=== PATIENT | female | born 1985 | race Caucasian/White ===

== ENCOUNTER 2016-05-22 17:20 | Emergency (ER) | payer OTHER ==
[~2016-05-22 17:20] MED LIST: FLAGYL500 MG PO; PRENATAL COMPLETE PO
--- NOTE | 2016-05-22 19:13 | ED CLINICAL REPORT ---
Clinical Report - Physicians/Mid Levels [facility] [address] [place] [address] 05/22/2016 17:21 Patient: KADEN SCHAEFER Time Seen: 1735. Arrived- By private vehicle. Historian- patient. HISTORY OF PRESENT ILLNESS Chief Complaint: ABDOMINAL PAIN. Is still present. It is described as "pain" and cramping. Quality not described as sharp or stabbing and it is described as located in the pelvic area and in the left pelvis. No nausea, loss of appetite or vomiting. (Patient presents with abdominal pain over the last 3 days, left-sided in nature, no urinary symptoms urgency or frequency, no diarrhea nausea or vomiting. Last Metro. General rate 15, patient has not taken at home tests over the last 4 weeks, reports possible . Patient denies any vaginal bleeding or spotting, or discharge. Denies any fevers.). REVIEW OF SYSTEMS No difficulty with urination, pain with urination, headache or blurred vision. All systems otherwise negative, except as recorded above. PAST HISTORY Problems: STD - Sexually Transmitted Disease. Headache. UTI - Urinary Tract Infection. Gastroenteritis. Pedal Edema. Abscess. Ovarian Cyst. Leukocytosis. Vaginal Bleeding. Viral Disease. Skin Rash. Dehydration. Immunizations. LNMP - Last Normal Menstrual Period. Abdominal Pain. Cellulitis. Acute Pain. . Additional Surgeries: Cholecystectomy. Medications: None. Allergies: No Known Drug Allergy. SOCIAL HISTORY Never smoker. No alcohol use or drug use. ADDITIONAL NOTES The nursing notes have been reviewed. PHYSICAL EXAM Vital Signs: 05/22/2016 17:33 BP: 107/64. HR: 80. RR: 16. O2 saturation: 94%. Temp: 99.7 F. Pain level now: 7/10. ENT: Ears normal. Nose normal. Neck: Normal inspection. No lymphadenopathy. CVS: Normal heart rate and rhythm. Heart sounds normal. Respiratory: No respiratory distress. Breath sounds normal. Abdomen: Soft and nontender. Tenderness. Bowel sounds normal. Back: Normal inspection. No CVA tenderness. : Normal external exam. No vaginal bleeding. Bimanual exam normal. No tenderness present on bimanual exam. Skin: Skin warm. Normal skin color. Neuro: Oriented X 3. No motor deficit. LABS, X-RAYS, AND EKG Abdominal Sonogram: (IMPRESSION: 1. Early intrauterine gestation at approximate 6.7 weeks menstrual age (plus/minus 1.5 weeks). 2. pole and viability are not confirmed at this early gestational age. 3. Left ovary is enlarged 95.4 cm) secondary to two left ovarian cysts (4.8 cm, 2.3 cm). 4. Findings discussed with JAMESON Leo. Electronically Final signed by:Navid Moy MD 05/22/2016 8:04:35 PM). Laboratory Tests: UA-Culture if indicated: (KALPANA: 05/22/2016 17:45) ( [facility] 05/22/2016 18:20) Final results Test Result Flag Units (Reference) URINE COLOR YELLOW URINE APPEARANCE CLEAR URINE GLUCOSE NEGATIVE (NEGATIVE) URINE BILIRUBIN NEGATIVE (NEGATIVE) URINE KETONE NEGATIVE (NEGATIVE) URINE SPECIFIC GRAVITY 1.010 (1.010-1.030) URINE PH 5.5 (5.0-8.0) URINE PROTEIN NEGATIVE (NEGATIVE) URINE UROBILINOGEN 0.2 EU/dL (0.2-1.0) URINE NITRITE NEGATIVE (NEGATIVE) URINE BLOOD NEGATIVE (NEGATIVE) URINE LEUK ESTERASE NEGATIVE (NEGATIVE) URINE RBC NONE SEEN rbc/hpf (0-1) URINE WBC 0-1 wbc/hpf (0-1) URINE EPITHELIAL CELLS 3-5 EPI/hpf (0-5) URINE BACTERIA TRACE (<1+) (NONE SEEN) URINE COMMENT CULT NOT INDICATED URINE CULTURES ARE SET-UP BASED ON THE FOLLOWING CRITERIA:POSITIVE NITRITEPOSITIVE LEUKOCYTE ESTERASEGREATER THAN 10 WHITE BLOOD CELLSMODERATE (2+) OR GREATER BACTERIA Urine: (KALPANA: 05/22/2016 17:45) ( [facility] 05/22/2016 18:00) Final results Test Result Flag Units (Reference) URINE POSITIVE CBC w Diff: (KALPANA: 05/22/2016 18:10) ( [facility] 05/22/2016 18:20) Final results Test Result Flag Units (Reference) WHITE BLOOD COUNT 15.3 H K/uL (4.5-11.5) RED BLOOD COUNT 4.32 M/uL (4.00-5.20) HEMOGLOBIN 11.7 L gm/dL (12.0-16.0) HEMATOCRIT 35.5 L % (36.0-46.0) MEAN CELL VOLUME 82 fL (80-100) MEAN CORPUSCULAR HGB 27 pg (26-34) MEAN CORPUSCULAR HGB CONC 33 g/dL (31-37) RED CELL DISTRIBUTION WIDTH 14.3 % (11.6-14.8) PLATELET COUNT 305 K/uL (150-400) NEUTROPHIL % 79.2 H % (50-75) LYMPH % 16.1 L % (25-40) MONO % 2.7 L % (3-14) EOSINOPHIL % 1.1 % (0-4) BASOPHIL % 0.9 % (0-2) CMP: (KALPANA: 05/22/2016 18:10) ( [facility] 05/22/2016 19:07) Final results Test Result Flag Units (Reference) GLUCOSE 114 H mg/dL (70-110) BUN 8 mg/dL (7-18) CREATININE 0.9 mg/dL (0.6-1.3) Estimated GFR >60 mL/min Estimated GFR- >60 mL/min Note: Persistent reduction over 3 months in eGFR<60 mL/min/1.73 m2 defines CKD. Patients with eGFR values>=60 mL/min/1.73 m2 may also have CKD if evidence ofpersistent proteinuria. Additional information may be foundat www.kidney.org. SODIUM 138 mmol/L (136-145) POTASSIUM 3.6 mmol/L (3.5-5.1) CHLORIDE 103 mmol/L (98-107) CARBON DIOXIDE 24 mmol/L (21-32) CALCIUM 8.8 mg/dL (8.5-10.1) TOTAL PROTEIN 8.6 H g/dL (6.4-8.2) ALBUMIN 3.6 g/dL (3.3-5.0) BILIRUBIN, TOTAL 0.7 mg/dL (0.0-1.0) ALKALINE PHOSPHATASE 75 U/L (46-116) AST (SGOT) 26 U/L (15-37) ALT (SGPT) 36 U/L (12-78) BETA HCG, QUANTITATIVE 60090 mIU/mL REFERENCE RANGE:Adult Males: <2 mIU/mLNon- Females: <6 mIU/mL Females:Approximate Approximate hCGGestational Age Range (mIU/mL) 0-1 week 0-501-2 weeks 40-3002-3 weeks 100-86783-5 weeks 500-06887-0 months 5,000-200,0002-3 months 10,000-100,0002nd trimester 3,000-50,0003rd trimester 1,000-50,000 Wet Prep: (KALPANA: 05/22/2016 18:36) ( [facility] 05/22/2016 19:09) Final results SPECIMEN DESCRIPTION: C Test Result Flag Units (Reference) WET MOUNT CLUE CELLS:: NONE EPITHELIAL CELLS: MODERATE -- SOURCE?: CERVIX WHITE BLOOD CELLS: MANY TRICHOMONAS:: NONE -- YEAST:: NONE . PROGRESS AND PROCEDURES Course of Care: chaperoned pelvic exam, patient with no tenderness, no cervical motion tenderness, no vaginal bleeding, cervix closed. No signs of torsion or pain out of proportion to exam. Early to f/u with ob. Non surgical abd, no guarding or peritoneal signs. 05/22/2016 19:30 BP: 109/58. HR: 88. RR: 16. O2 saturation: 99%. Temp: 99.3 F. Pain level now: 2/10. Patient is stable. Physical exam findings are improved. Patient/family counseled. Disposition: Discharged. CLINICAL IMPRESSION First trimester ; positive test in emergency department. Multiple simple left ovarian cysts. INSTRUCTIONS Drink plenty of fluids. (follow up with EXCELLENCE CONSULTANT in 2-3 weeks, if sudden worsening of pain return to ER). Prescription Medications: vitamins: Take 1 orally every day. Dispense thirty (30). No refill. OTC Medications: Take acetaminophen (Tylenol, Datril, etc.) according to label instructions. Available over the counter. Follow-up with: Gamal Hutton MD, Obstetrics/Gynecology, , [facility], [address] [place] [address] Follow up. Call for the next available appointment. (Electronically signed by Diana Ball P.A.-C 05/22/2016 21:18)
--- NOTE | 2016-05-22 19:13 | ED ORDER SUMMARY ---
..... Patient: KADEN SCHAEFER OrderSheet [facility] VisitID: [id number] [place] [address] 30y, F Registration Date/Time: 05/22/2016 ORDER SHEET Weight: 108.8 kg (stated) Allergies: No Known Drug Allergy GENERAL ORDERS: UA-Culture if indicated Urgent (17:42 05/22/2016 JRomanelli R.N. verbal order read back to EKoroleva P.A.-C) (Ack 17:42 Ewelina) (18:12 LNations ER Tech1) Urine Urgent (17:42 05/22/2016 JRomanelli R.N. verbal order read back to EKoroleva P.A.-C) (Ack 17:42 Ewelina) (18:12 LNations ER Tech1) CBC w Diff Urgent (17:52 05/22/2016 EKoroleva P.A.-C) (Ack 18:00 LNations ER Tech1) (18:12 LNations ER Tech1) CMP Urgent (17:52 05/22/2016 EKoroleva P.A.-C) (Ack 18:00 LNations ER Tech1) (18:12 LNations ER Tech1) Serum Quantitative Urgent (17:52 05/22/2016 EKoroleva P.A.-C) (Ack 18:00 LNations ER Tech1) (18:12 LNations ER Tech1) Pelvic Exam Setup (17:52 05/22/2016 EKoroleva P.A.-C) (Ack 18:00 LNations ER Tech1) (18:12 LNations ER Tech1) US OB 1st Trimester w Transvag (03/11/16) Urgent (18:20 05/22/2016 EKoroleva P.A.-C) (Ack 18:25 LNations ER Tech1) (20:29 JRomanelli R.N.) Wet Prep (Cervix) (c) Urgent (18:56 05/22/2016 EKoroleva P.A.-C) (Ack 18:57 LNations ER Tech1) (20:29 JRomanelli R.N.) GC/Chlamydia (Cervix) (c) Urgent (18:56 05/22/2016 Porter Duke) (Ack 18:57 LNations ER Tech1) (20:29 Claude Ramos) MEDICATION ORDERS: IV FLUIDS: ORDER SHEET NOTES: [Electronically signed by Jonh Rivers R.N. (20:35 05/22/2016)] [Electronically signed by Diana Ball P.A.-C (21:18 05/22/2016)] [Electronically locked/signed by Jonh Rivers R.N. (20:35 05/22/2016)]
--- NOTE | 2016-05-22 19:13 | ED NURSING NOTES ---
Clinical Report - Nurses [facility] [address] [place] [address] 05/22/2016 17:21 Patient: KADEN SCHAEFER TRIAGE Triage time 17:30 May 22 2016. Acuity: LEVEL 3. Chief Complaint: LEFT-SIDED FLANK PAIN. Alert. CARYL COMA SCORE: Strang Coma Scale: 15- eyes open spontaneously (4); best verbal response- oriented x 4 (5); best motor response- obeys commands (6). --17:45 Jonh Rivers R.N. 17:33 05/22/16. BP: 107/64. HR: 80. RR: 16. O2 saturation: 94% on room air. Temp: 99.7 F. Pain level now: 7/10. Additional comments: (L) Flank. --17:45 Jonh Rivers R.N. Weight: 108.8 kg stated. Height/Length: 65 inches Per Patient. BMI: 40. --17:37 Jonh Rivers R.N. Medications None. --17:35 Jonh Rivers R.N. Allergies No Known Drug Allergy. --17:35 Jonh Rivers R.N. Medication/allergy information source: the patient. --17:45 Jonh Rivers R.N. History Arrived by private vehicle. Historian: patient. Accompanied by spouse. Primary physician ([facility]). ( (L) Flank Pain for the last 2 days.). Onset. (about 2 days ago). She has had abdominal pain. She has had moderate left-sided flank pain. No abnormal bleeding. Treatment SALES ADVISORY MANAGER: None. PAST MEDICAL HX: Prior sexually transmitted disease history: chlamydia. Immunizations: up-to-date. Last normal menstrual period- about 2 months ago. SOCIAL HX: Never smoker. No alcohol use or drug use. No infectious disease exposure. ABUSE ASSESSMENT: No report of abuse. FALL RISK ASSESSMENT: Fall risk assessment completed. No fall risk identified. NUTRITIONAL RISK ASSESSMENT: The nutritional risk assessment revealed no deficiencies. FUNCTIONAL ASSESSMENT: Functional assessment: no impairments noted. LEARNING NEEDS ASSESSMENT: The learning needs assessment revealed no barriers. SKIN INTEGRITY ASSESSMENT: Skin integrity risk assessment completed. No skin integrity risk identified. --17:45 Jonh Rivers R.N. PROBLEMS: Headache. UTI - Urinary Tract Infection. Gastroenteritis. Pedal Edema. Abscess. Ovarian Cyst. Leukocytosis. Vaginal Bleeding. Viral Disease. Dehydration. Immunizations. LNMP - Last Normal Menstrual Period. Abdominal Pain. Cellulitis. Acute Pain. --17:38 Jonh Rivers R.N. ADDITIONAL SURGERIES: Cholecystectomy. --17:38 Jonh Rivers R.N. Interventions ID band on patient. To treatment room. --17:45 Jonh Rivers R.N. PHYSICAL ASSESSMENT Ambulatory to room. GENERAL / NEURO / PSYCH: Alert. Oriented X 4. Appears in pain. HEENT: Mucous membranes are pink. RESPIRATORY: Respirations not labored. CVS: Normal heart rate and rhythm. GI / : Abdominal tenderness in the left lower quadrant. Bowel sounds within normal limits. No vaginal bleeding. No vaginal discharge. SKIN: Skin is warm and dry. --17:46 Jonh Rivers R.N. NURSING PROGRESS NOTES Patient gowned. Reassurance given. Patient identifiers checked. Call light placed in reach. Side rails up x 1. Bed placed in lowest position. Brakes of bed on. Patient ready for evaluation- chart flagged and ED physician notified. --17:46 Jonh Rivers R.N. Patient ID band checked for patient name, birthdate and medical record number: patient confirmed. Instructions provided to collect clean catch urine and patient verbalized understanding. Clean catch urine collected with return of yellow-colored clear urine; odor is normal; sample sent to lab for urinalysis, culture and HCG. Specimen labeled in the presence of the patient. --17:47 Jonh Rivers R.N. 18:56 05/22/16. PELVIC EXAM: Pelvic exam performed by PA. Assisted by two nurses. Preparation: pelvic tray; patient placed in lithotomy position. Procedure: speculum and bimanual exam. Specimens collected and sent to lab: GC, chlamydia and wet prep. Status post-procedure: she was stable. Total time of assist / procedure: 15 minutes. --18:56 Tg Michelle R.N. 19:15 05/22/16. BP: 109/57. HR: 75. RR: 16. O2 saturation: 99%. Pain level now: 06/04. Additional comments: (L) Flank Pain. --19:26 Jonh Rivers R.N. 18:30 late entry -. ( Ultrasound in room doing procedure). --20:34 Jonh Rivers R.N. DISPOSITION / DISCHARGE 19:30 05/22/16. BP: 109/58. HR: 88. RR: 16. O2 saturation: 99% on room air. Temp: 99.3 F. Pain level now: 04/06. Additional comments: (L) Flank Pain. --20:24 Jonh Rivers R.N. <<STRICKEN ENTRY-- Departure time: 1929. --20:24 Jonh Rivers R.N. --END STRIKE>> Correction --20:28 Jonh Rivers R.N. 19:35. Condition at departure: improved. No learning barriers present. Discharge instructions provided and reviewed with the patient. Reviewed medication(s) (prescription given to pt). Reviewed referral to an sponge buffer for followup. Patient and spouse verbalized understanding. Written instructions provided in Bengali. The patient was discharged by the physician assistant hairstylist. She was discharged home and accompanied by spouse. She left the Emergency Department ambulatory and via private vehicle. Spouse driving. --20:28 Jonh Rivers R.N. Departure time: 1934. --20:28 Jonh Rivers R.N. Locked/Released at 05/22/2016 20:35 by Jonh Rivers R.N.
--- NOTE | 2016-05-22 19:13 | ED ORDER SUMMARY ---
..... Patient: KADEN SCHAEFER OrderSheet [facility] VisitID: [id number] [place] [address] 30y, F Registration Date/Time: 05/22/2016 ORDER SHEET Weight: 108.8 kg (stated) Allergies: No Known Drug Allergy GENERAL ORDERS: UA-Culture if indicated Urgent (17:42 05/22/2016 JRomanelli R.N. verbal order read back to EKoroleva P.A.-C) (Ack 17:42 Ewelina) (18:12 LNations ER Tech1) Urine Urgent (17:42 05/22/2016 JRomanelli R.N. verbal order read back to EKoroleva P.A.-C) (Ack 17:42 Ewelina) (18:12 LNations ER Tech1) CBC w Diff Urgent (17:52 05/22/2016 EKoroleva P.A.-C) (Ack 18:00 LNations ER Tech1) (18:12 LNations ER Tech1) CMP Urgent (17:52 05/22/2016 EKoroleva P.A.-C) (Ack 18:00 LNations ER Tech1) (18:12 LNations ER Tech1) Serum Quantitative Urgent (17:52 05/22/2016 EKoroleva P.A.-C) (Ack 18:00 LNations ER Tech1) (18:12 LNations ER Tech1) Pelvic Exam Setup (17:52 05/22/2016 EKoroleva P.A.-C) (Ack 18:00 LNations ER Tech1) (18:12 LNations ER Tech1) US OB 1st Trimester w Transvag (03/11/16) Urgent (18:20 05/22/2016 EKoroleva P.A.-C) (Ack 18:25 LNations ER Tech1) (20:29 JRomanelli R.N.) Wet Prep (Cervix) (c) Urgent (18:56 05/22/2016 EKoroleva P.A.-C) (Ack 18:57 LNations ER Tech1) (20:29 JRomanelli R.N.) GC/Chlamydia (Cervix) (c) Urgent (18:56 05/22/2016 Porter Duke) (Ack 18:57 LNations ER Tech1) (20:29 Claude Ramos) MEDICATION ORDERS: IV FLUIDS: ORDER SHEET NOTES: [Electronically signed by Jonh Rivers R.N. (20:35 05/22/2016)] [Electronically signed by Diana Ball P.A.-C (21:18 05/22/2016)] [Electronically locked/signed by Jonh Rivers R.N. (20:35 05/22/2016)]
--- NOTE | 2016-05-22 19:13 | ED CLINICAL REPORT ---
Clinical Report - Physicians/Mid Levels [facility] [address] [place] [address] 05/22/2016 17:21 Patient: KADEN SCHAEFER Time Seen: 1735. Arrived- By private vehicle. Historian- patient. HISTORY OF PRESENT ILLNESS Chief Complaint: ABDOMINAL PAIN. Is still present. It is described as "pain" and cramping. Quality not described as sharp or stabbing and it is described as located in the pelvic area and in the left pelvis. No nausea, loss of appetite or vomiting. (Patient presents with abdominal pain over the last 3 days, left-sided in nature, no urinary symptoms urgency or frequency, no diarrhea nausea or vomiting. Last Metro. General rate 15, patient has not taken at home tests over the last 4 weeks, reports possible . Patient denies any vaginal bleeding or spotting, or discharge. Denies any fevers.). REVIEW OF SYSTEMS No difficulty with urination, pain with urination, headache or blurred vision. All systems otherwise negative, except as recorded above. PAST HISTORY Problems: STD - Sexually Transmitted Disease. Headache. UTI - Urinary Tract Infection. Gastroenteritis. Pedal Edema. Abscess. Ovarian Cyst. Leukocytosis. Vaginal Bleeding. Viral Disease. Skin Rash. Dehydration. Immunizations. LNMP - Last Normal Menstrual Period. Abdominal Pain. Cellulitis. Acute Pain. . Additional Surgeries: Cholecystectomy. Medications: None. Allergies: No Known Drug Allergy. SOCIAL HISTORY Never smoker. No alcohol use or drug use. ADDITIONAL NOTES The nursing notes have been reviewed. PHYSICAL EXAM Vital Signs: 05/22/2016 17:33 BP: 107/64. HR: 80. RR: 16. O2 saturation: 94%. Temp: 99.7 F. Pain level now: 7/10. ENT: Ears normal. Nose normal. Neck: Normal inspection. No lymphadenopathy. CVS: Normal heart rate and rhythm. Heart sounds normal. Respiratory: No respiratory distress. Breath sounds normal. Abdomen: Soft and nontender. Tenderness. Bowel sounds normal. Back: Normal inspection. No CVA tenderness. : Normal external exam. No vaginal bleeding. Bimanual exam normal. No tenderness present on bimanual exam. Skin: Skin warm. Normal skin color. Neuro: Oriented X 3. No motor deficit. LABS, X-RAYS, AND EKG Abdominal Sonogram: (IMPRESSION: 1. Early intrauterine gestation at approximate 6.7 weeks menstrual age (plus/minus 1.5 weeks). 2. pole and viability are not confirmed at this early gestational age. 3. Left ovary is enlarged 95.4 cm) secondary to two left ovarian cysts (4.8 cm, 2.3 cm). 4. Findings discussed with JAMESON Leo. Electronically Final signed by:Navid Moy MD 05/22/2016 8:04:35 PM). Laboratory Tests: UA-Culture if indicated: (KALPANA: 05/22/2016 17:45) ( [facility] 05/22/2016 18:20) Final results Test Result Flag Units (Reference) URINE COLOR YELLOW URINE APPEARANCE CLEAR URINE GLUCOSE NEGATIVE (NEGATIVE) URINE BILIRUBIN NEGATIVE (NEGATIVE) URINE KETONE NEGATIVE (NEGATIVE) URINE SPECIFIC GRAVITY 1.010 (1.010-1.030) URINE PH 5.5 (5.0-8.0) URINE PROTEIN NEGATIVE (NEGATIVE) URINE UROBILINOGEN 0.2 EU/dL (0.2-1.0) URINE NITRITE NEGATIVE (NEGATIVE) URINE BLOOD NEGATIVE (NEGATIVE) URINE LEUK ESTERASE NEGATIVE (NEGATIVE) URINE RBC NONE SEEN rbc/hpf (0-1) URINE WBC 0-1 wbc/hpf (0-1) URINE EPITHELIAL CELLS 3-5 EPI/hpf (0-5) URINE BACTERIA TRACE (<1+) (NONE SEEN) URINE COMMENT CULT NOT INDICATED URINE CULTURES ARE SET-UP BASED ON THE FOLLOWING CRITERIA:POSITIVE NITRITEPOSITIVE LEUKOCYTE ESTERASEGREATER THAN 10 WHITE BLOOD CELLSMODERATE (2+) OR GREATER BACTERIA Urine: (KALPANA: 05/22/2016 17:45) ( [facility] 05/22/2016 18:00) Final results Test Result Flag Units (Reference) URINE POSITIVE CBC w Diff: (KALPANA: 05/22/2016 18:10) ( [facility] 05/22/2016 18:20) Final results Test Result Flag Units (Reference) WHITE BLOOD COUNT 15.3 H K/uL (4.5-11.5) RED BLOOD COUNT 4.32 M/uL (4.00-5.20) HEMOGLOBIN 11.7 L gm/dL (12.0-16.0) HEMATOCRIT 35.5 L % (36.0-46.0) MEAN CELL VOLUME 82 fL (80-100) MEAN CORPUSCULAR HGB 27 pg (26-34) MEAN CORPUSCULAR HGB CONC 33 g/dL (31-37) RED CELL DISTRIBUTION WIDTH 14.3 % (11.6-14.8) PLATELET COUNT 305 K/uL (150-400) NEUTROPHIL % 79.2 H % (50-75) LYMPH % 16.1 L % (25-40) MONO % 2.7 L % (3-14) EOSINOPHIL % 1.1 % (0-4) BASOPHIL % 0.9 % (0-2) CMP: (KALPANA: 05/22/2016 18:10) ( MsgRcvd 05/22/2016 19:07) Final results Test Result Flag Units (Reference) GLUCOSE 114 H mg/dL (70-110) BUN 8 mg/dL (7-18) CREATININE 0.9 mg/dL (0.6-1.3) Estimated GFR >60 mL/min Estimated GFR- >60 mL/min Note: Persistent reduction over 3 months in eGFR<60 mL/min/1.73 m2 defines CKD. Patients with eGFR values>=60 mL/min/1.73 m2 may also have CKD if evidence ofpersistent proteinuria. Additional information may be foundat www.kidney.org. SODIUM 138 mmol/L (136-145) POTASSIUM 3.6 mmol/L (3.5-5.1) CHLORIDE 103 mmol/L (98-107) CARBON DIOXIDE 24 mmol/L (21-32) CALCIUM 8.8 mg/dL (8.5-10.1) TOTAL PROTEIN 8.6 H g/dL (6.4-8.2) ALBUMIN 3.6 g/dL (3.3-5.0) BILIRUBIN, TOTAL 0.7 mg/dL (0.0-1.0) ALKALINE PHOSPHATASE 75 U/L (46-116) AST (SGOT) 26 U/L (15-37) ALT (SGPT) 36 U/L (12-78) BETA HCG, QUANTITATIVE 81434 mIU/mL REFERENCE RANGE:Adult Males: <2 mIU/mLNon- Females: <6 mIU/mL Females:Approximate Approximate hCGGestational Age Range (mIU/mL) 0-1 week 0-501-2 weeks 40-3002-3 weeks 100-36582-5 weeks 500-96680-2 months 5,000-200,0002-3 months 10,000-100,0002nd trimester 3,000-50,0003rd trimester 1,000-50,000 Wet Prep: (KALPANA: 05/22/2016 18:36) ( [facility] 05/22/2016 19:09) Final results SPECIMEN DESCRIPTION: C Test Result Flag Units (Reference) WET MOUNT CLUE CELLS:: NONE EPITHELIAL CELLS: MODERATE -- SOURCE?: CERVIX WHITE BLOOD CELLS: MANY TRICHOMONAS:: NONE -- YEAST:: NONE . PROGRESS AND PROCEDURES Course of Care: chaperoned pelvic exam, patient with no tenderness, no cervical motion tenderness, no vaginal bleeding, cervix closed. No signs of torsion or pain out of proportion to exam. Early to f/u with ob. Non surgical abd, no guarding or peritoneal signs. 05/22/2016 19:30 BP: 109/58. HR: 88. RR: 16. O2 saturation: 99%. Temp: 99.3 F. Pain level now: 2/10. Patient is stable. Physical exam findings are improved. Patient/family counseled. Disposition: Discharged. CLINICAL IMPRESSION First trimester ; positive test in emergency department. Multiple simple left ovarian cysts. INSTRUCTIONS Drink plenty of fluids. (follow up with FOOD SCIENCE PROFESSOR in 2-3 weeks, if sudden worsening of pain return to ER). Prescription Medications: vitamins: Take 1 orally every day. Dispense thirty (30). No refill. OTC Medications: Take acetaminophen (Tylenol, Datril, etc.) according to label instructions. Available over the counter. Follow-up with: Gamal Hutton MD, Obstetrics/Gynecology, , [facility], [address] [place] [address] Follow up. Call for the next available appointment. (Electronically signed by Diana Ball P.A.-C 05/22/2016 21:18)
--- NOTE | 2016-05-22 19:13 | ED NURSING NOTES ---
Clinical Report - [facility] [address] [place] [address] 05/22/2016 17:21 Patient: KADEN SCHAEFER TRIAGE Triage time 17:30 May 22 2016. Acuity: LEVEL 3. Chief Complaint: LEFT-SIDED FLANK PAIN. Alert. CARYL COMA SCORE: [place] Coma Scale: 15- eyes open spontaneously (4); best verbal response- oriented x 4 (5); best motor response- obeys commands (6). --17:45 Jonh Rivers R.N. 17:33 05/22/16. BP: 107/64. HR: 80. RR: 16. O2 saturation: 94% on room air. Temp: 99.7 F. Pain level now: 7/10. Additional comments: (L) Flank. --17:45 Jonh Rivers R.N. Weight: 108.8 kg stated. Height/Length: 65 inches Per Patient. BMI: 40. --17:37 Jonh Rivers R.N. Medications None. --17:35 Jonh Rivers R.N. Allergies No Known Drug Allergy. --17:35 Jonh Rivers R.N. Medication/allergy information source: the patient. --17:45 Jonh Rivers R.N. History Arrived by private vehicle. Historian: patient. Accompanied by spouse. Primary physician ([facility]). ( (L) Flank Pain for the last 2 days.). Onset. (about 2 days ago). She has had abdominal pain. She has had moderate left-sided flank pain. No abnormal bleeding. Treatment TEAM TRUCK DRIVER: None. PAST MEDICAL HX: Prior sexually transmitted disease history: chlamydia. Immunizations: up-to-date. Last normal menstrual period- about 2 months ago. SOCIAL HX: Never smoker. No alcohol use or drug use. No infectious disease exposure. ABUSE ASSESSMENT: No report of abuse. FALL RISK ASSESSMENT: Fall risk assessment completed. No fall risk identified. NUTRITIONAL RISK ASSESSMENT: The nutritional risk assessment revealed no deficiencies. FUNCTIONAL ASSESSMENT: Functional assessment: no impairments noted. LEARNING NEEDS ASSESSMENT: The learning needs assessment revealed no barriers. SKIN INTEGRITY ASSESSMENT: Skin integrity risk assessment completed. No skin integrity risk identified. --17:45 John Rivers R.N. PROBLEMS: Headache. UTI - Urinary Tract Infection. Gastroenteritis. Pedal Edema. Abscess. Ovarian Cyst. Leukocytosis. Vaginal Bleeding. Viral Disease. Dehydration. Immunizations. LNMP - Last Normal Menstrual Period. Abdominal Pain. Cellulitis. Acute Pain. --17:38 Jonh Rivers R.N. ADDITIONAL SURGERIES: Cholecystectomy. --17:38 Jonh Rivers R.N. Interventions ID band on patient. To treatment room. --17:45 Jonh Rivers R.N. PHYSICAL ASSESSMENT Ambulatory to room. GENERAL / NEURO / PSYCH: Alert. Oriented X 4. Appears in pain. HEENT: Mucous membranes are pink. RESPIRATORY: Respirations not labored. CVS: Normal heart rate and rhythm. GI / : Abdominal tenderness in the left lower quadrant. Bowel sounds within normal limits. No vaginal bleeding. No vaginal discharge. SKIN: Skin is warm and dry. --17:46 Jonh Rivers R.N. NURSING PROGRESS NOTES Patient gowned. Reassurance given. Patient identifiers checked. Call light placed in reach. Side rails up x 1. Bed placed in lowest position. Brakes of bed on. Patient ready for evaluation- chart flagged and ED physician notified. --17:46 Jonh Rivers R.N. Patient ID band checked for patient name, birthdate and medical record number: patient confirmed. Instructions provided to collect clean catch urine and patient verbalized understanding. Clean catch urine collected with return of yellow-colored clear urine; odor is normal; sample sent to lab for urinalysis, culture and HCG. Specimen labeled in the presence of the patient. --17:47 Jonh Rivers R.N. 18:56 05/22/16. PELVIC EXAM: Pelvic exam performed by PA. Assisted by two nurses. Preparation: pelvic tray; patient placed in lithotomy position. Procedure: speculum and bimanual exam. Specimens collected and sent to lab: GC, chlamydia and wet prep. Status post-procedure: she was stable. Total time of assist / procedure: 15 minutes. --18:56 Tg Michelle R.N. 19:15 05/22/16. BP: 109/57. HR: 75. RR: 16. O2 saturation: 99%. Pain level now: 06/04. Additional comments: (L) Flank Pain. --19:26 Jonh Rivers R.N. 18:30 late entry -. ( Ultrasound in room doing procedure). --20:34 Jonh Rivers R.N. DISPOSITION / DISCHARGE 19:30 05/22/16. BP: 109/58. HR: 88. RR: 16. O2 saturation: 99% on room air. Temp: 99.3 F. Pain level now: 04/06. Additional comments: (L) Flank Pain. --20:24 Jonh Rivers R.N. <<STRICKEN ENTRY-- Departure time: 1929. --20:24 Jonh Rivers R.N. --END STRIKE>> Correction --20:28 Jonh Rivers R.N. 19:35. Condition at departure: improved. No learning barriers present. Discharge instructions provided and reviewed with the patient. Reviewed medication(s) (prescription given to pt). Reviewed referral to an blow down operator for followup. Patient and spouse verbalized understanding. Written instructions provided in [employer]. The patient was discharged by the physician assistant to the director. She was discharged home and accompanied by spouse. She left the Emergency Department ambulatory and via private vehicle. Spouse driving. --20:28 Jonh Rivers R.N. Departure time: 1934. --20:28 Jonh Rivers R.N. Locked/Released at 05/22/2016 20:35 by Jonh Rivers R.N.
--- NOTE | 2016-05-22 20:07 | DIAGNOSTIC IMAGING REPORT ---
PROCEDURE: US OB 1ST TRIMESTER W/TRANSVAG INDICATION: PAIN TECHNIQUE: Escobar scale, color, and spectral Doppler transabdominal and endovaginal sonographic images of the first trimester gravid uterus were obtained. (Executive Advisor D, RT). COMPARISON: None. FINDINGS: TRANSABDOMINAL SCANS: Early intrauterine gestational sac. TRANSVAGINAL SCANS: Early intrauterine gestational sac (1.8 cm, 6.7 weeks). Small yolk sac. pole and cardiac activity not clearly documented at this early age. Left ovary is enlarged (5.4 cm) by two adjacent left ovarian cysts (4.8 cm, 2.3 cm). Right ovary is normal (3.1 cm). No evidence of free fluid. IMPRESSION: 1. Early intrauterine gestation at approximate 6.7 weeks menstrual age (plus/minus 1.5 weeks). 2. pole and viability are not confirmed at this early gestational age. 3. Left ovary is enlarged 95.4 cm) secondary to two left ovarian cysts (4.8 cm, 2.3 cm). 4. Findings discussed with JAMESON Leo.
--- NOTE | 2016-05-22 20:07 | DIAGNOSTIC IMAGING REPORT ---
PROCEDURE: US OB 1ST TRIMESTER W/TRANSVAG INDICATION: PAIN TECHNIQUE: Escobar scale, color, and spectral Doppler transabdominal and endovaginal sonographic images of the first trimester gravid uterus were obtained. (Careers Counsellor D, RT). COMPARISON: None. FINDINGS: TRANSABDOMINAL SCANS: Early intrauterine gestational sac. TRANSVAGINAL SCANS: Early intrauterine gestational sac (1.8 cm, 6.7 weeks). Small yolk sac. pole and cardiac activity not clearly documented at this early age. Left ovary is enlarged (5.4 cm) by two adjacent left ovarian cysts (4.8 cm, 2.3 cm). Right ovary is normal (3.1 cm). No evidence of free fluid. IMPRESSION: 1. Early intrauterine gestation at approximate 6.7 weeks menstrual age (plus/minus 1.5 weeks). 2. pole and viability are not confirmed at this early gestational age. 3. Left ovary is enlarged 95.4 cm) secondary to two left ovarian cysts (4.8 cm, 2.3 cm). 4. Findings discussed with JAMESON Leo.
--- NOTE | 2016-05-22 21:18 | ED MAR SUMMARY ---
..... Medication Administration Record [facility] [address] [place], [place] [id number] Patient: KADEN SCHAEFER Visit ID: [id number] 30y, F Weight: 108.8 kg Height/Length: 65 in BMI: 40 ALLERGIES: No Known Drug Allergy
--- NOTE | 2016-05-22 21:18 | ED MED RECONCILIATION SUMMARY ---
Patient: KADEN SCHAEFER Medication Reconciliation Report [facility] VisitID: [id number] [place] [address] 30y, F Registration Date/Time: 05/22/2016 Weight: 108.8 kg Height/Length: 65 in. BMI: 40.0 ALLERGIES: No Known Drug Allergy The patient's Home Medications are listed below: NONE. The source(s) of the original Home Medication information: patient The following Medications were given to the patient in the Emergency Department: None. The following Medications were prescribed to the patient: Take acetaminophen (Tylenol, Datril, etc.) according to label instructions. Available over the counter. -- Diana Ball, P.A.-C vitamins: Take 1 orally every day. Dispense thirty (30). No refill. -- Diana Ball, P.A.-C
--- NOTE | 2016-05-22 21:18 | ED MAR SUMMARY ---
..... Medication Administration Record [facility] [address], [place] [id number] Patient: KADEN SCHAEFER Visit ID: [id number] 30y, F Weight: 108.8 kg Height/Length: 65 in BMI: 40 ALLERGIES: No Known Drug Allergy
--- NOTE | 2016-05-22 21:18 | ED DISCHARGE INSTRUCTIONS ---
Patient: KADEN SCHAEFER General Instructions [facility] VisitID: [id number] [place] [id number] 30y, F Registration Date/Time: 05/22/2016 First trimester ; positive test in emergency department. Multiple simple left ovarian cysts. INSTRUCTIONS Drink plenty of fluids. (follow up with FLOOR INSPECTOR in 2-3 weeks, if sudden worsening of pain return to ER). Prescription Medications: vitamins: Take 1 orally every day. Dispense thirty (30). No refill. OTC Medications: Take acetaminophen (Tylenol, Datril, etc.) according to label instructions. Available over the counter. Follow-up with: Gamal Hutton MD, Obstetrics/Gynecology, , [facility], [address] [place] [address] Follow up. Call for the next available appointment. ADDITIONAL INFORMATION Ovarian Cyst The ovary is a small organ located on each side of the uterus. During each menstrual cycle a tiny egg sac forms in the ovary. If the egg is released but does not occur, this sac usually dissolves. Sometimes, the sac may fill with fluid. It then enlarges into a painful cyst. Usually the cyst will rupture or shrink on its own. In either case, the pain gradually goes away over the next 1-3 days. If the cyst does not shrink or rupture, it may cause continued pain. Home Care: Rest in bed and avoid heavy exertion until you are feeling better. Heat to the lower abdomen usually helps (heating pad or hot packs -- a small towel soaked in hot water). You may use acetaminophen (Tylenol) or ibuprofen (Motrin, Advil) to control pain, unless another pain medicine was prescribed. [NOTE: If you have chronic liver or kidney disease or ever had a stomach ulcer or GI bleeding, talk with your doctor before using these medicines.] Follow Up: See your doctor within the next 2-3 days if your pain doesnt improve. Otherwise, follow up with your doctor after your next period or as directed by our staff. Get Prompt Medical Attention if any of the following occur: Pain worsens or fails to respond to the above measures Fever of 100.4F (38C) or higher, or as directed by your healthcare provider Heavy vaginal bleeding (soaking one pad an hour for three hours) You feel weak or dizzy Fainting Passage of a pink or nowak tissue with menstrual bleeding Your exam today shows that you are . During , it is normal to develop tender swollen breasts, frequent urination and mild vaginal discharge. During the first three months, nausea is common. Guidelines For A Healthy : To ensure that your baby is born healthy there are certain things that you can do: When you feel tired, you should REST. This is especially true in the later months of . Your body needs more FLUIDS than you may be used to: You should drink 8-10 glasses of juice, milk or water. Eat well-balanced MEALS at regular intervals to supply your body with enough protein. You can expect a total weight gain of about 30 pounds during the . Do not try to diet or lose weight while you are . Because of the extra nutritional needs during , take one VITAMIN daily. Do not take any other MEDICINE during your (prescribed or [id number]) unless your doctor specifically recommends this. Many drugs can have harmful effects on the growing baby. If NAUSEA or VOMITING become a problem, avoid greasy and fried foods. Eat several smaller meals throughout the day rather than three large meals. If you SMOKE, you must stop. The nicotine you breathe in goes right to the baby. Stay away from ALCOHOL, even in moderate amounts. Daily drinking will harm your baby and can cause permanent brain damage. RECREATIONAL DRUGS are harmful, especially cocaine, crack, and heroin. Marijuana should also be avoided. If you were using recreational drugs or prescribed medicine when you found out that you were , talk to your doctor about possible effects on the fetus. Follow Up: Call to arrange for care. This can be provided by your family doctor, an black top raker ( specialist) or a primary care clinic. Get Prompt Medical Attention if any of the following occur: Vaginal bleeding Moderate or severe abdominal or back pain Excessive vomiting, unable to keep any fluids down for six hours Burning with urination Headache, dizziness or rapid weight gain Your exam today shows that you are . During , it is normal to develop tender swollen breasts, frequent urination and mild vaginal discharge. During the first three months, nausea is common. Guidelines For A Healthy : To ensure that your baby is born healthy there are certain things that you can do: When you feel tired, you should REST. This is especially true in the later months of . Your body needs more FLUIDS than you may be used to: You should drink 8-10 glasses of juice, milk or water. Eat well-balanced MEALS at regular intervals to supply your body with enough protein. You can expect a total weight gain of about 30 pounds during the . Do not try to diet or lose weight while you are . Because of the extra nutritional needs during , take one VITAMIN daily. Do not take any other MEDICINE during your (prescribed or [id number]) unless your doctor specifically recommends this. Many drugs can have harmful effects on the growing baby. If NAUSEA or VOMITING become a problem, avoid greasy and fried foods. Eat several smaller meals throughout the day rather than three large meals. If you SMOKE, you must stop. The nicotine you breathe in goes right to the baby. Stay away from ALCOHOL, even in moderate amounts. Daily drinking will harm your baby and can cause permanent brain damage. RECREATIONAL DRUGS are harmful, especially cocaine, crack, and heroin. Marijuana should also be avoided. If you were using recreational drugs or prescribed medicine when you found out that you were , talk to your doctor about possible effects on the fetus. Follow Up: Call to arrange for care. This can be provided by your family doctor, an black top raker ( specialist) or a primary care clinic. Get Prompt Medical Attention if any of the following occur: Vaginal bleeding Moderate or severe abdominal or back pain Excessive vomiting, unable to keep any fluids down for six hours Burning with urination Headache, dizziness or rapid weight gain You have been given the following additional information: Ovarian Cyst , New Dx , New Dx (Electronically signed by Diana Ball P.A.-C 05/22/2016 21:18)
--- NOTE | 2016-05-22 21:18 | ED MED RECONCILIATION SUMMARY ---
Patient: KADEN SCHAEFER Medication Reconciliation Report [facility] VisitID: [id number] [place] [address] 30y, F Registration Date/Time: 05/22/2016 Weight: 108.8 kg Height/Length: 65 in. BMI: 40.0 ALLERGIES: No Known Drug Allergy The patient's Home Medications are listed below: NONE. The source(s) of the original Home Medication information: patient The following Medications were given to the patient in the Emergency Department: None. The following Medications were prescribed to the patient: Take acetaminophen (Tylenol, Datril, etc.) according to label instructions. Available over the counter. -- Diana Ball, P.A.-C vitamins: Take 1 orally every day. Dispense thirty (30). No refill. -- Diana Ball, P.A.-C
--- NOTE | 2016-05-22 21:18 | ED DISCHARGE INSTRUCTIONS ---
Patient: KADEN SCHAEFER General Instructions [facility] VisitID: [id number] [place] [id number] 30y, F Registration Date/Time: 05/22/2016 First trimester ; positive test in emergency department. Multiple simple left ovarian cysts. INSTRUCTIONS Drink plenty of fluids. (follow up with MANAGER PROJECT MANAGEMENT in 2-3 weeks, if sudden worsening of pain return to ER). Prescription Medications: vitamins: Take 1 orally every day. Dispense thirty (30). No refill. OTC Medications: Take acetaminophen (Tylenol, Datril, etc.) according to label instructions. Available over the counter. Follow-up with: Gamal Hutton MD, Obstetrics/Gynecology, , [facility], [address] [place] [address] Follow up. Call for the next available appointment. ADDITIONAL INFORMATION Ovarian Cyst The ovary is a small organ located on each side of the uterus. During each menstrual cycle a tiny egg sac forms in the ovary. If the egg is released but does not occur, this sac usually dissolves. Sometimes, the sac may fill with fluid. It then enlarges into a painful cyst. Usually the cyst will rupture or shrink on its own. In either case, the pain gradually goes away over the next 1-3 days. If the cyst does not shrink or rupture, it may cause continued pain. Home Care: Rest in bed and avoid heavy exertion until you are feeling better. Heat to the lower abdomen usually helps (heating pad or hot packs -- a small towel soaked in hot water). You may use acetaminophen (Tylenol) or ibuprofen (Motrin, Advil) to control pain, unless another pain medicine was prescribed. [NOTE: If you have chronic liver or kidney disease or ever had a stomach ulcer or GI bleeding, talk with your doctor before using these medicines.] Follow Up: See your doctor within the next 2-3 days if your pain doesnt improve. Otherwise, follow up with your doctor after your next period or as directed by our staff. Get Prompt Medical Attention if any of the following occur: Pain worsens or fails to respond to the above measures Fever of 100.4F (38C) or higher, or as directed by your healthcare provider Heavy vaginal bleeding (soaking one pad an hour for three hours) You feel weak or dizzy Fainting Passage of a pink or nowak tissue with menstrual bleeding Your exam today shows that you are . During , it is normal to develop tender swollen breasts, frequent urination and mild vaginal discharge. During the first three months, nausea is common. Guidelines For A Healthy : To ensure that your baby is born healthy there are certain things that you can do: When you feel tired, you should REST. This is especially true in the later months of . Your body needs more FLUIDS than you may be used to: You should drink 8-10 glasses of juice, milk or water. Eat well-balanced MEALS at regular intervals to supply your body with enough protein. You can expect a total weight gain of about 30 pounds during the . Do not try to diet or lose weight while you are . Because of the extra nutritional needs during , take one VITAMIN daily. Do not take any other MEDICINE during your (prescribed or [id number]) unless your doctor specifically recommends this. Many drugs can have harmful effects on the growing baby. If NAUSEA or VOMITING become a problem, avoid greasy and fried foods. Eat several smaller meals throughout the day rather than three large meals. If you SMOKE, you must stop. The nicotine you breathe in goes right to the baby. Stay away from ALCOHOL, even in moderate amounts. Daily drinking will harm your baby and can cause permanent brain damage. RECREATIONAL DRUGS are harmful, especially cocaine, crack, and heroin. Marijuana should also be avoided. If you were using recreational drugs or prescribed medicine when you found out that you were , talk to your doctor about possible effects on the fetus. Follow Up: Call to arrange for care. This can be provided by your family doctor, an target worker ( specialist) or a primary care clinic. Get Prompt Medical Attention if any of the following occur: Vaginal bleeding Moderate or severe abdominal or back pain Excessive vomiting, unable to keep any fluids down for six hours Burning with urination Headache, dizziness or rapid weight gain Your exam today shows that you are . During , it is normal to develop tender swollen breasts, frequent urination and mild vaginal discharge. During the first three months, nausea is common. Guidelines For A Healthy : To ensure that your baby is born healthy there are certain things that you can do: When you feel tired, you should REST. This is especially true in the later months of . Your body needs more FLUIDS than you may be used to: You should drink 8-10 glasses of juice, milk or water. Eat well-balanced MEALS at regular intervals to supply your body with enough protein. You can expect a total weight gain of about 30 pounds during the . Do not try to diet or lose weight while you are . Because of the extra nutritional needs during , take one VITAMIN daily. Do not take any other MEDICINE during your (prescribed or [id number]-[id number]) unless your doctor specifically recommends this. Many drugs can have harmful effects on the growing baby. If NAUSEA or VOMITING become a problem, avoid greasy and fried foods. Eat several smaller meals throughout the day rather than three large meals. If you SMOKE, you must stop. The nicotine you breathe in goes right to the baby. Stay away from ALCOHOL, even in moderate amounts. Daily drinking will harm your baby and can cause permanent brain damage. RECREATIONAL DRUGS are harmful, especially cocaine, crack, and heroin. Marijuana should also be avoided. If you were using recreational drugs or prescribed medicine when you found out that you were , talk to your doctor about possible effects on the fetus. Follow Up: Call to arrange for care. This can be provided by your family doctor, an target worker ( specialist) or a primary care clinic. Get Prompt Medical Attention if any of the following occur: Vaginal bleeding Moderate or severe abdominal or back pain Excessive vomiting, unable to keep any fluids down for six hours Burning with urination Headache, dizziness or rapid weight gain You have been given the following additional information: Ovarian Cyst , New Dx , New Dx (Electronically signed by Diana Ball P.A.-C 05/22/2016 21:18)
== END 2016-05-22 19:35 | disposition home or self-care (01) ==
LOC: ED SRH 17:20
DX: O34.81 Maternal care for other abnormalities of pelvic organs, first trimester (principal); N83.292 Other ovarian cyst, left side; Z32.01 Encounter for pregnancy test, result positive; Z3A.01 Less than 8 weeks gestation of pregnancy
CPT/HCPCS: 90004; 90074; 90100; 90195; 90197; 91227; 91228; 93070; 95059